=== PATIENT | female | born 1975 | race Caucasian/White ===

== ENCOUNTER 2016-12-22 14:35 | Emergency (ER) | payer OTHER ==
[2016-12-22 16:17] LABS: HEMOGLOBIN 11.4 gm/dl (12.3-15.3); RED BLOOD COUNT 4.24 M/UL (4.00-5.10); WHITE BLOOD COUNT 7.8 K/UL (4.5-11.0)
[2016-12-22 16:40] LABS: BUN/CREATININE RATIO 19 (0-10)
== END 2016-12-22 18:50 | disposition home or self-care (01) ==
LOC: ER1 14:35
PROVIDERS: Emergency Medicine
DX: T62.91XA Toxic effect of unspecified noxious substance eaten as food, accidental (unintentional), initial encounter (principal); R11.2 Nausea with vomiting, unspecified; R19.7 Diarrhea, unspecified; I48.91 Unspecified atrial fibrillation; E11.9 Type 2 diabetes mellitus without complications; I10 Essential (primary) hypertension
CPT/HCPCS: 36415; 71010; 80053; 82550; 82553; 83874; 84484; 85025; 93005; 96374; 96375; 99284; J1200; J2405; J2765; J7040

== ENCOUNTER 2020-11-16 19:14 | Emergency (ER) | payer OTHER ==
[~2020-11-16 19:14] MED LIST: ADMELOG100 UNIT/1 INJ; ASPIRIN EC81 MG PO; BASAGLAR K100 UNIT/1 INJ; BENADRYL 25MG C25 MG PO; IBU800 MG PO; LISINOPRIL40 MG PO; MACROBID 100 M100 MG PO; METOPROLOL PO; OMEPRAZOLE40 MG PO; OMNICEF 300 MG300 MG PO; PYRIDIUM200 MG PO; TRIAMTERENE-HC1 EAC1 PO; ZOCOR40 MG PO; ZOFRAN4 MG PO
[2020-11-17 01:09] LABS: HEMOGLOBIN 12.3 gm/dl (12.3-15.3); RED BLOOD COUNT 4.52 M/UL (4.00-5.10); WHITE BLOOD COUNT 5.7 K/UL (4.5-11.0)
[2020-11-17 01:33] LABS: BUN/CREATININE RATIO 21 (0-10)
[2020-11-17] MEDS ORDERED: BAYER CHEWABLE81 MG PO (03:47)
== END 2020-11-17 04:00 | disposition home or self-care (01) ==
LOC: ER1 19:14
PROVIDERS: Physician Assistant
DX: R07.9 Chest pain, unspecified (principal); E78.5 Hyperlipidemia, unspecified; E10.9 Type 1 diabetes mellitus without complications; I10 Essential (primary) hypertension; E66.01 Morbid (severe) obesity due to excess calories; Z90.49 Acquired absence of other specified parts of digestive tract
CPT/HCPCS: 71045; 80053; 80307; 81001; 82550; 82553; 83735; 83874; 83880; 84439; 84443; 84484; 85025; 85379; 85610; 85730; 93005; 99285; Q9967

== ENCOUNTER 2020-12-08 23:30 | Emergency (ER) | payer OTHER ==
[~2020-12-08 23:30] MED LIST changes: +BAYER CHEWABLE81 MG PO
[2020-12-09 01:13] LABS: HEMOGLOBIN 12.1 gm/dl (12.3-15.3); RED BLOOD COUNT 4.5 M/UL (4.00-5.10)
== END 2020-12-09 03:36 | disposition home or self-care (01) ==
LOC: ER1 23:30
PROVIDERS: Internal Medicine
DX: N39.0 Urinary tract infection, site not specified (principal); E11.9 Type 2 diabetes mellitus without complications; I10 Essential (primary) hypertension
CPT/HCPCS: 80053; 81001; 82962; 85025; 93005; 96365; 96375; 99284; J0696; J2405; J7120

== ENCOUNTER → 2020-12-20 | Outpatient (CLI) | payer OTHER | LOC: HEART 5 10:00 | DX: R00.2 Palpitations (principal) ==

== ENCOUNTER → 2021-02-26 | Outpatient (CLI) | payer OTHER | LOC: ECHO 01-22 10:00 | DX: R06.02 Shortness of breath (principal); I51.7 Cardiomegaly | CPT/HCPCS: ECHO; 93306 ==

== ENCOUNTER → 2022-03-04 | Outpatient (CLI) | payer OTHER | LOC: MAMO 14:30 | DX: Z12.31 Encounter for screening mammogram for malignant neoplasm of breast (principal) | CPT/HCPCS: 77063; 77067 ==